=== PATIENT | female | born 1935 | race Caucasian/White ===

== ENCOUNTER 2019-06-18 13:35 | Day surgery (SDC) | payer MEDICARE, BC ==
[~2019-06-18] VITALS: Ht 170.2 cm; Wt 54.1 kg
[~2019-06-18 13:35] MED LIST: BUDE3CAP8 INH; DIPH-522 PO
[2019-06-18 14:26] VITALS: BP 146/70
[2019-06-18 14:32] VITALS: BP 146/70
[2019-06-18 14:57] LABS: BASOPHILS # (AUTO) 0.1 X10'3 (0-0.2); BASOPHILS % (AUTO) 1.3 % (0-1); EOSINOPHILS # (AUTO) 0.1 X10'3 (0-0.9); EOSINOPHILS % (AUTO) 2.1 % (0-6); LYMPHOCYTES # (AUTO) 0.8 X10'3 (1.1-4.8); LYMPHOCYTES % (AUTO) 17.5 % (21-51); MEAN CORPUSCULAR HEMOGLOBIN 32.3 PG (27.0-31.0); MEAN CORPUSCULAR HGB CONC 33.4 g/dL (33.0-36.5); MEAN CORPUSCULAR VOLUME 96.6 FL (78-98); MEAN PLATELET VOLUME 7.8 FL (7.4-10.4); MONOCYTES # (AUTO) 0.4 X10'3 (0-0.9); MONOCYTES % (AUTO) 9.4 % (2-12); NEUTROPHILS % (AUTO) 69.7 % (42-75); PRE OP HEMOGLOBIN 12.7 g/dL (12.0-16.0); PRE OP PLATELET COUNT 206 X10'3 (140-440); RED BLOOD COUNT 3.94 X10'6 (4.20-5.60); RED CELL DISTRIBUTION WIDTH 13.8 % (11.5-14.5)
[2019-06-18 15:11] LABS: ALBUMIN 3.5 G/DL (3.4-5.0); ALBUMIN/GLOBULIN RATIO 1.2 (1.1-1.5); ALKALINE PHOSPHATASE 58 IU/L (46-116); BLOOD UREA NITROGEN 12 MG/DL (7-18); BUN/CREATININE RATIO 20.3 (6.6-38.0); CALCIUM 8.7 MG/DL (8.5-10.1); CHLORIDE 107 MMOL/L (99-107); CREATININE 0.59 MG/DL (0.40-0.90); PRE OP ALT 30 U/L (30-65); PRE OP ANION GAP 7 (8-16); PRE OP AST 21 U/L (10-37); PRE OP BILIRUB, TOTAL 0.6 MG/DL (0.0-1.0); PRE OP GLUCOSE 93 MG/DL (70-104); PRE OP POTASSIUM 4.1 MMOL/L (3.4-5.1); PRE OP SODIUM 141 MMOL/L (135-145); TOTAL PROTEIN 6.4 G/DL (6.4-8.2); eGFR > 90 ML/MIN
[2019-06-18] MEDS ORDERED: ceFAZolin 1GM/D5W- ADD-VANTAGE 50 ML IV ONE (15:45)
[2019-06-18] MEDS ORDERED: ringers solution, lacted 1,000 ML IV SCH ×2 (15:45→17:11)
[2019-06-18] MEDS ORDERED: famotidine 20mg tablet PO ONE (15:45)
[2019-06-18] MEDS ORDERED: proCHLORperazine 10 MG/2 ml inj IV PRN (17:15)
[2019-06-18] MEDS ORDERED: morphine 4 MG/ML inj SYRINge IV PRN ×2 (17:15)
[2019-06-18] MEDS ORDERED: meperidine/PF 25mg/ml syringe IV PRN ×3 (17:15)
[2019-06-18] MEDS ORDERED: ondansetron/PF 4mg/2ml inj IV PRN (17:15)
[2019-06-18] MEDS ORDERED: ceFAZolin 1000mg inj ONE (17:28)
[2019-06-18] MEDS ORDERED: BUPIVAcaine/PF 2.5 mg/ml (0.25%) 30ml vial ONE (17:28)
[2019-06-18] MEDS ORDERED: LIDOcaine 1% 30ml preserv. free vial ONE (17:34)
[2019-06-18] MEDS ORDERED: fentaNYL/PF 50MCG/1 ML 2ML syringe ONE (17:36)
[2019-06-18] MEDS ORDERED: midazolam 2 mg/2 ml injection ONE (17:37)
[2019-06-18 18:25] VITALS: BP 145/72
--- NOTE | 2019-06-18 18:25 | NUR ---
[facility] accompanied by Anesthesiologist TRIP and report given by Anesthesiolgist. Pt VS stable, pt alert and responsible to questions, left hand wrapped in hard splint and DANICA wrap, IV to right lower forearm 20G 100cc/hr LR IVF.
--- NOTE | 2019-06-18 19:35 | NUR ---
Pt discharged to vehicle by wheelchair without incident. Prior to DC, pt and friend heard and verbalized understanding of DC information. IV DC'd, fingers remain pink good cap refill able to be wiggled. Pt has pain script at home already and knows to fill it and follow orders written on script, knows to call for a follow up appointment. All belongings sent home with patient, pt in her own clothing upon discharge.
== END 2019-06-18 19:35 | disposition home or self-care (01) ==
LOC: PAS 13:35
PROVIDERS: ATTEND Orthopaedic Surgery
DX: G56.02 Carpal tunnel syndrome, left upper limb (principal); Z79.899 Other long term (current) drug therapy
CPT/HCPCS: 36415; 64721; 80053; 85025; 93005; J0690; J2001; J2250; J3010; J3490; A4215; A6449; A7000; J7120